=== PATIENT | male | born 1950 | race Caucasian/White ===

== ENCOUNTER 2017-01-21 14:29 | Emergency (ER) | payer OTHER ==
--- NOTE | 2017-01-21 16:16 | ER Document Report ---
HPI - HPI Pain Level: 3 Notes: Patient is a 66-year-old male who presents the ED complaining of left buttock pain 4 days status post moving a lot of furniture. Patient states that the pain is like a dull soreness in that area that will occasionally radiate around to his anterior thigh and into his groin. Patient states that pain worsens with sitting and pressure. Patient states that he is able to ambulate without difficulties. He has tried some lidocaine cream with minimal relief. Patient denies any drug allergies. Patient admits to smoking but denies any other illicit drug use. His PCM is Dr. Le. Denies any headache, fever, chest pain, palpitations, syncope, cough, shortness of breath, wheeze, dyspnea, abdominal pain, nausea/vomiting/diarrhea, urinary retention, dysuria, hematuria , loss of control of bowel or bladder, numbness/tingling, saddle anesthesia, muscle paralysis/weakness, or rash. denies any procedures or injections to his back. No h/o DM. - ROS Notes: REVIEW OF SYSTEMS: CONSTITUTIONAL : Denies fever, chills, or sweats. Denies recent illness. EENT: Denies eye, ear, throat, or mouth pain or symptoms. Denies nasal or sinus congestion or discharge. Denies throat, tongue, or mouth swelling or difficulty swallowing. CARDIOVASCULAR: Denies chest pain. Denies palpitations or racing or irregular heart beat. Denies ankle edema. RESPIRATORY: Denies cough, cold, or chest congestion. Denies shortness of breath, difficulty breathing, or wheezing. GASTROINTESTINAL: Denies abdominal pain or distention. Denies nausea, vomiting , or diarrhea. Denies blood in vomitus, stools, or per rectum. Denies black, tarry stools. Denies constipation. GENITOURINARY: Denies difficulty urinating, painful urination, burning, frequency, blood in urine, or discharge. MUSCULOSKELETAL: see hpi SKIN: Denies rash, lesions or sores. NEUROLOGICAL: Denies confusion or altered mental status. Denies passing out or loss of consciousness. Denies dizziness or lightheadedness. Denies headache. Denies weakness or paralysis or loss of use of either side. Denies problems with gait or speech. Denies sensory loss, numbness, or tingling. ALL OTHER SYSTEMS REVIEWED AND NEGATIVE. Dictation was performed using [employer] voice recognition software - CARDIOVASCULAR Cardiovascular: DENIES: Chest pain - DERM Skin Color: Normal Past Medical History - Social History Smoking Status: Current Every Day Smoker Family History: Reviewed & Not Pertinent Patient has suicidal ideation: No Patient has homicidal ideation: No - Past Medical History Cardiac Medical History: Reports: Hx Coronary Artery Disease, Hx Heart Attack, Hx Hypercholesterolemia, Hx Hypertension Pulmonary Medical History: Reports: Hx COPD Endocrine Medical History: Reports: Hx Diabetes Mellitus Type 2 Renal/ Medical History: Denies: Hx Peritoneal Dialysis GI Medical History: Reports: Hx Gastroesophageal Reflux Disease Psychiatric Medical History: Denies: Hx Depression Past Surgical History: Reports: Hx Appendectomy, Hx Cardiac Catheterization - PTCA, Hx Cholecystectomy, Hx Coronary Stent - AAA and iliac repair, Hx Orthopedic Surgery - spinal surgery to remove bone spurs Vertical Provider Document - CONSTITUTIONAL Agree With Documented VS: Yes Notes: PHYSICAL EXAMINATION: GENERAL: Well-appearing, well-nourished and in no acute distress. LUNGS: Breath sounds clear to auscultation bilaterally and equal. No wheezes rales or rhonchi. HEART: Regular rate and rhythm without murmurs, rubs, gallops. ABDOMEN: Soft, nontender, nondistended abdomen. No guarding, no rebound. No masses appreciated. Normal bowel sounds present. No CVA tenderness bilaterally. No pulsatile mass. Musculoskeletal: LE's b/l: FROM to passive/active. Strength 5+/5. SLR neg b/l. Back: FROM to passive/active. Strength 5+/5. No vertebral point tenderness or obvious deformity noted. + left SI jt tenderness. No ecchymosis or signs of trauma otherwise. Extremities: No cyanosis, clubbing, or edema b/l. Peripheral pulses 2+. Capillary refill less than 3 seconds. NEUROLOGICAL: Normal speech, normal gait. Normal sensory, motor exams PSYCH: Normal mood, normal affect. SKIN: Warm, Dry, normal turgor, no rashes or lesions noted. - INFECTION CONTROL TRAVEL OUTSIDE OF THE [place] IN LAST 30 DAYS: No - RESPIRATORY O2 Sat by Pulse Oximetry: 98 Course - Re-evaluation Re-evalutation: 01/21/17 16:16 Patient is an afebrile, well-hydrated, 66-year-old male who presents the ED with left sacral iliitis. Vitals are stable. PE otherwise unremarkable for any focal neurological deficits. Low suspicion for any meningitis, fracture, expanding/ruptured AAA, cauda equina syndrome, epidural mass lesion/abscess, herniated disc causing severe spinal stenosis, or other systemic infection at this time. Patient is aware that his condition can change from initial presentation and that he needs monitor symptoms closely for any acute changes. Toradol 15 mg given IM today. I will send him home with a prescription for Voltaren gel. Conservative measures otherwise for symptoms as reviewed in discharge. Recheck with your PCM in 3-5 days. Return to the ED with any worsening/concerning symptoms otherwise as reviewed discharge. Patient is in agreement. - Vital Signs Vital signs: Temp Pulse Resp BP Pulse Ox 98.4 F 63 18 146/93 H 98 01/21/17 15:11 01/21/17 15:11 01/21/17 15:11 01/21/17 15:11 01/21/17 15:11 Discharge - Discharge Clinical Impression: Sacroiliac inflammation Condition: Stable Disposition: HOME, SELF-CARE Instructions: Ice Massage ([facility]), Ice Packs ([facility]), Warm Packs ([facility]) Additional Instructions: Rest, Ice Tylenol/ibuprofen as needed Light stretches daily Strength exercises as able Moist heat and massage may help F/u with your PCP in 2-3 days for a recheck Consider consult(s) with Orthopedics/physical therapy for ongoing/worsening symptoms Return to the ED with any worsening symptoms and/or development of fever, headache, chest pain, palpitations, syncope, shortness of breath, trouble breathing, abdominal pain, n/v/d, blood in stool/urine, loss of control of bowel /bladder, urinary retention, muscle weakness/paralysis, saddle anesthesia, numbness/tingling, or other worsening symptoms that are concerning to you. Prescriptions: Diclofenac Sodium [Voltaren] 4 gm TP QID PRN #100 gel..gm. PRN Reason: Forms: Elevated Blood Pressure, Smoking Cessation Education Referrals: KAYE LE MD [ACTIVE STAFF] - Follow up in 3-5 days
[2017-01-21] MEDS ORDERED: KETOROLAC TROMETHAMINE INJ/PF 30 MG/1 ML SDV IM ONE (16:17)
[2017-01-21 16:37] VITALS: BP 144/86
== END 2017-01-21 16:32 | disposition home or self-care (01) ==
LOC: ER 14:29
DX: M46.1 Sacroiliitis, not elsewhere classified (principal); F17.200 Nicotine dependence, unspecified, uncomplicated; I25.10 Atherosclerotic heart disease of native coronary artery without angina pectoris; I25.2 Old myocardial infarction; I10 Essential (primary) hypertension; E11.9 Type 2 diabetes mellitus without complications; J44.9 Chronic obstructive pulmonary disease, unspecified
CPT/HCPCS: 99283; 96372; J1885

== ENCOUNTER 2017-06-13 23:04 | Emergency (ER) | payer OTHER ==
[2017-06-13 23:19] VITALS: BP 194/107
--- NOTE | 2017-06-13 23:42 | RADIOLOGY REPORT (SQ) ---
EXAM DESCRIPTION: ELBOW LEFT OVER 2 VIEWS CLINICAL HISTORY: 67 years, Male, s/p fall on ice- pain COMPARISON: None. NUMBER OF VIEWS: Four LIMITATIONS: None. FINDINGS: Bones, joints, and soft tissues appear intact. No effusion. IMPRESSION: No acute findings. 2011 [employer]- All Rights Reserved
--- NOTE | 2017-06-13 23:46 | RADIOLOGY REPORT (SQ) ---
EXAM DESCRIPTION: SHOULDER LEFT 2 OR MORE VIEWS CLINICAL HISTORY: 67 years, Male, s/p fall on ice- pain COMPARISON: None. NUMBER OF VIEWS: Three FINDINGS: 0.9 cm medially displaced comminuted fracture of the surgical neck of the left proximal humerus, moderate impaction deformity of the left humeral head medially on internal rotated view, and mild acromioclavicular osteoarthritis. No evidence of healing. No joint dislocation. IMPRESSION: Fractures of the proximal left humerus. 2011 [employer]- All Rights Reserved
--- NOTE | 2017-06-14 00:02 | ER Document Report ---
ED Extremity Problem, Upper - General Chief Complaint: L shoulder pain s/p fall Stated Complaint: LEFT SHOULDER INJURY Time Seen by Provider: 06/14/17 00:01 Mode of Arrival: Ambulatory Information source: Patient Notes: 67-year-old smoker male slipped in the snow and ice at 10:30 PM tonight. He fell on his left shoulder Causing popping and cracking in extreme pain. He has a history of hypertension, BPH, hyperlipidemia, coronary artery disease disease, stents. He takes Plavix and he took 2 aspirin tonight for the pain. TRAVEL OUTSIDE OF THE [place] IN LAST 30 DAYS: No - Related Data Allergies/Adverse Reactions: ragweed Allergy (Intermediate, Uncoded 01/21/17 15:08) Stuffy Nose Past Medical History - General Information source: Patient - Social History Smoking Status: Current Every Day Smoker Frequency of alcohol use: None Drug Abuse: None Lives with: Spouse/Significant other Family History: Reviewed & Not Pertinent - Past Medical History Cardiac Medical History: Reports: Hx Coronary Artery Disease, Hx Heart Attack, Hx Hypercholesterolemia, Hx Hypertension Pulmonary Medical History: Reports: Hx COPD Endocrine Medical History: Reports: Hx Diabetes Mellitus Type 2 Renal/ Medical History: Denies: Hx Peritoneal Dialysis GI Medical History: Reports: Hx Gastroesophageal Reflux Disease Psychiatric Medical History: Denies: Hx Depression Past Surgical History: Reports: Hx Appendectomy, Hx Cardiac Catheterization - PTCA, Hx Cholecystectomy, Hx Coronary Stent - AAA and iliac repair, Hx Orthopedic Surgery - spinal surgery to remove bone spurs Review of Systems - Review of Systems Constitutional: No symptoms reported EENT: No symptoms reported Cardiovascular: No symptoms reported Respiratory: No symptoms reported Gastrointestinal: No symptoms reported Genitourinary: No symptoms reported Male Genitourinary: No symptoms reported Musculoskeletal: See HPI Skin: No symptoms reported Hematologic/Lymphatic: No symptoms reported Neurological/Psychological: No symptoms reported Physical Exam - Vital signs Vitals: Temp Pulse Resp BP Pulse Ox 97.5 F 76 24 H 194/107 H 98 06/13/17 23:14 06/13/17 23:14 06/13/17 23:14 06/13/17 23:14 06/13/17 23:14 Interpretation: Normal - General General appearance: Appears well, Alert - HEENT Head: Normocephalic, Atraumatic Eyes: Normal Pupils: PERRL Neck: Supple. No: Lymphadenopathy - Respiratory Respiratory status: No respiratory distress Chest status: Nontender Breath sounds: Normal Chest palpation: Normal - Cardiovascular Rhythm: Regular Heart sounds: Normal auscultation Murmur: No - Back Back: Normal, Nontender - Extremities General upper extremity: Normal inspection, Nontender, Normal color, Normal ROM , Normal temperature General lower extremity: Normal inspection, Nontender, Normal color, Normal ROM , Normal temperature, Normal weight bearing. No: Bayron's sign Shoulder: Tender - swelling, proximal humerus, limits his abduction due to pain , FROM left elbow, Limited ROM. No: Deformity, Instability Elbow: Normal Notes: 2+ radial pulse, N/V intact distal to the fx. - Neurological Neuro grossly intact: Yes Cognition: Normal Orientation: AAOx4 Rom[place] Coma Scale Eye Opening: Spontaneous Rom[place] Coma Scale Verbal: Oriented Rom[place] Coma Scale Motor: Obeys Commands [place] Coma Scale Total: 15 Speech: Normal Motor strength normal: LUE, RUE, LLE, RLE Sensory: Normal - Psychological Associated symptoms: Normal affect, Normal mood - Skin Skin Temperature: Warm Skin Moisture: Dry Skin Color: Normal Skin irregularity: negative: Rash Course - Re-evaluation Re-evalutation: 06/14/17 00:20 Comminuted fracture proximal left humerus, negative left elbow x-ray. - Vital Signs Vital signs: Temp Pulse Resp BP Pulse Ox 97.5 F 76 24 H 194/107 H 98 06/13/17 23:14 06/13/17 23:14 06/13/17 23:14 06/13/17 23:14 06/13/17 23:14 Procedures - Immobilization Left Arm Time completed: 00:21 Pre-Proc Neuro Vasc Exam: Normal Immobilizer type: Sling Performed by: PCT Post-Proc Neuro Vasc Exam: Normal Alignment checked and good: Yes Discharge - Discharge Clinical Impression: Comminuted fracture prox left humerus Condition: Good Disposition: HOME, SELF-CARE Instructions: Oral Narcotic Medication ([facility]), Sling as Treatment ([facility]) Additional Instructions: Call for orthopedic appointment tomorrow, get appt early this week Sling Pain medication Turned to the emergency room any concerns Prescriptions: Hydrocodone Bit/Acetaminophen [Hydrocodon-Acetaminophen 5-325] 1 each PO Q4HP PRN #20 tablet PRN Reason: Referrals: AUGIE OCASIO MD [ACTIVE STAFF] - Follow up tomorrow
[2017-06-14] MEDS ORDERED: ONDANSETRON 4 MG TAB.RAPDIS PO ONE (00:03)
[2017-06-14] MEDS ORDERED: OXYCODONE-ACETAMINOPHEN 5-325 MG TABLET PO ONE (00:03)
[2017-06-14] MEDS ORDERED: HYDROCODONE/ACETAMINOPHEN 5-325 MG (6 TAB/ER DISP) PO PRN (00:06)
== END 2017-06-14 00:30 | disposition home or self-care (01) ==
LOC: ER 23:04
DX: S42.202A Unspecified fracture of upper end of left humerus, initial encounter for closed fracture (principal); W00.0XXA Fall on same level due to ice and snow, initial encounter; F17.200 Nicotine dependence, unspecified, uncomplicated; Z79.899 Other long term (current) drug therapy
CPT/HCPCS: 99283; 73080; 73030; A9270 ×3; S0119

== ENCOUNTER 2018-01-15 14:44 | Emergency (ER) | payer OTHER ==
[2018-01-15] MEDS ORDERED: NOREPINEPHRINE BITARTRATE INJ/PF 4 MG/4 ML SDV IV ONE ×2 (15:17→15:19)
--- NOTE | 2018-01-15 15:17 | ER Document Report ---
ED General - General Chief Complaint: Cardiac Arrest Stated Complaint: UNRESPONSIVE Time Seen by Provider: 01/15/18 15:04 Notes: Patient is approximately 9 days post multiple vessel CABG done at [facility] in [place]. He has been at a local rehab facility during his recovery. Today , he expressed to the staff that he was not feeling very good, but nothing specifically stated. He was alone for about 5 minutes when he was discovered laying on the floor face down. Supposedly staff started CPR and called the EMS. EMS says that when they arrived patient was in asystole. CPR was continued and they found ventricular fibrillation and patient was defibrillated one time and came back into a sinus rhythm. During the resuscitation, patient was intubated. Transported to our emergency department. Initial vital signs were blood pressure 76/67 with a heart rate of 85 and an O2 sat of 97% being ventilated, and respirations of 17. Patient had a CT scan of his head that did not show anything acute, including no evidence of stroke. Chest x-ray was normal as well. TRAVEL OUTSIDE OF THE [place] IN LAST 30 DAYS: No - Related Data Allergies/Adverse Reactions: ragweed Allergy (Intermediate, Uncoded 01/21/17 15:08) Stuffy Nose Past Medical History - Social History Smoking Status: Unknown if Ever Smoked Family History: Reviewed & Not Pertinent - Past Medical History Cardiac Medical History: Reports: Hx Coronary Artery Disease, Hx Heart Attack, Hx Hypercholesterolemia, Hx Hypertension Pulmonary Medical History: Reports: Hx COPD Endocrine Medical History: Reports: Hx Diabetes Mellitus Type 2 GI Medical History: Reports: Hx Gastroesophageal Reflux Disease Past Surgical History: Reports: Hx Appendectomy, Hx Cardiac Catheterization - PTCA, Hx Cardiac Surgery, Hx Cholecystectomy, Hx Coronary Stent - AAA and iliac repair, Hx Orthopedic Surgery - spinal surgery to remove bone spurs Review of Systems - Review of Systems -: Yes ROS unobtainable due to patient's medical condition Physical Exam - Vital signs Vitals: Pulse Ox 89 L 01/15/18 14:44 Interpretation: Hypotensive - Notes Notes: PHYSICAL EXAMINATION: GENERAL: Intubated and being ventilated manually. Unresponsive to any stimulus. HEAD: Atraumatic, normocephalic. EYES: Pupils pinpoint bilaterally, unable to assess response to light. ENT: Intubated NECK: Normal range of motion, supple. LUNGS: Breath sounds somewhat shallow, but clear and equal bilaterally. HEART: Decreased heart sounds. Regular rate and rhythm without murmurs. ABDOMEN: Soft, nontender. No response to palpation. BACK: No tenderness throughout entire back. EXTREMITIES: Normal range of motion without pain. NEUROLOGICAL: Patient is basically comatose and unresponsive to any stimulation. Only activity is resisting the ventilator. SKIN: Warm, dry, no rashes. ET tube was eventually moved back about a total of 3-1/2 or 4 cm from the initial chest x-ray as it was 2 4 down and pointing into the right mainstem bronchus. Course - Re-evaluation Re-evalutation: Patient's hypotension continued and he was given 1 L of saline bolus followed by a second liter. At the start of the second liter, I initiated a Levophed drip at 12 mics. Fairly soon after, blood pressures began to increase to systolic of 80 and 90 and then a and eventually 130 and even 150s systolic. At that time, patient's Levophed was cut in half down to 6 mcg/min. He maintained his blood pressure in the 130s and his drip was decreased eventually to 4 mcg/ min. Patient showed no neurologic improvement during these activities and resuscitation. Patient had a CT scan of his head that did not show anything acute, including no evidence of stroke. Chest x-ray was normal as well. 01/15/18 17:29 Blood pressure now up to 130 systolic. 01/15/18 19:18 Spoke with several physicians at [facility] and eventually Dr. Myke Ramsay, who accepted the patient for transfer. - Vital Signs Vital signs: Temp Pulse Resp BP Pulse Ox 18 117/86 H 97 01/15/18 19:10 01/15/18 19:10 01/15/18 19:10 - Laboratory Result Diagrams: 01/15/18 14:45 01/15/18 14:45 Laboratory results interpreted by me: 01/15/18 01/15/18 01/15/18 14:45 14:45 14:45 WBC 15.7 H RBC 3.90 L Hgb 10.9 L Hct 33.7 L RDW 17.3 H Plt Count 505 H Abs Neuts (Manual) 11.8 H PT 16.9 H Sodium 134.6 L Chloride 97 L BUN 23 H Glucose 201 H Calcium 8.3 L Direct Bilirubin 0.6 H AST 109 H ALT 108 H Alkaline Phosphatase 193 H Total Protein 5.8 L Albumin 3.0 L Critical Care Note - Critical Care Note Total time excluding time spent on procedures (mins): 60 Discharge - Discharge Clinical Impression: Cardiac arrest, Hx of CABG Condition: Critical Disposition: Critical access hospital
[2018-01-15] MEDS ORDERED: FENTANYL CITRATE INJ/PF 100 MCG/2 ML AMPUL IV ONE ×2 (15:22→18:06)
[2018-01-15] MEDS ORDERED: FENTANYL CITRATE INJ/PF 100 MCG/2 ML AMPUL ONE (15:24)
[2018-01-15] MEDS ORDERED: NORMAL SALINE 1000 ML 1,000 ML IV ONE ×2 (15:37)
--- NOTE | 2018-01-15 15:41 | RADIOLOGY REPORT (SQ) ---
EXAM DESCRIPTION: CHEST SINGLE VIEW COMPLETED DATE/TIME: 01/15/2018 3:27 pm REASON FOR STUDY: UNRESPONSIVE, ETT, NG TUBE PLACEMENT COMPARISON: 04/26/2015 EXAM PARAMETERS: NUMBER OF VIEWS: Two views. TECHNIQUE: Single frontal radiographic view of the chest acquired. RADIATION DOSE: NA LIMITATIONS: None. FINDINGS: LUNGS AND PLEURA: Patchy hazy opacifications are present bilaterally. Right greater than left pleural effusions are demonstrated on the 2nd frontal radiograph. MEDIASTINUM AND HILAR STRUCTURES: No masses. Contour normal. HEART AND VASCULAR STRUCTURES: Heart normal in size. Normal vasculature. BONES: No acute findings. HARDWARE: The initial radiograph demonstrates a right mainstem intubation ; the 2nd radiograph demons trates retraction with the tube terminating 3 cm cranial to the chris. Midline surgical changes are present. OTHER: No other significant finding. IMPRESSION: 1. Status post intubation with the tube terminating 3.0 cm cranial to the chris. 2. Patchy hazy opacifications with right greater than left pleural effusions. TECHNICAL DOCUMENTATION: JOB ID: [id number] [employer]- All Rights Reserved Reading location - IP/workstation name: [email or web address]
--- NOTE | 2018-01-15 15:45 | RADIOLOGY REPORT (SQ) ---
EXAM DESCRIPTION: KUB/ABDOMEN (SINGLE VIEW) COMPLETED DATE/TIME: 01/15/2018 3:27 pm REASON FOR STUDY: UNRESPONSIVE, ETT, NG TUBE PLACEMENT COMPARISON: 04/26/2015 and 01/16/2016 NUMBER OF VIEWS: One view. TECHNIQUE: Supine radiographic image of the abdomen acquired. LIMITATIONS: Limited field of view. FINDINGS: BOWEL GAS PATTERN: Limited evaluation; no evidence high-grade obstruction. CALCIFICATIONS: No suspicious calcifications. SOFT TISSUES: No gross mass or suggestion of organomegaly. HARDWARE: An apparent enteric tube terminates subdiaphragmatically with the proximal port projecting cranial to the esophagogastric junction. Partially imaged vascular stent. Right upper quadrant surg ical clips. BONES: No acute fracture. No worrisome bone lesions. OTHER: No other significant finding. IMPRESSION: Enteric tube with the proximal port projecting cranial to the esophagogastric junction. Recommend advancing 10 cm. TECHNICAL DOCUMENTATION: JOB ID: [id number] [employer]- All Rights Reserved Reading location - IP/workstation name: [email or web address]
[2018-01-15 15:49] LABS: INTERNATIONAL RATION (INR) 1.31; PROTHROMBIN TIME 16.9 SEC (11.4-15.4)
[2018-01-15 15:53] LABS: HEMATOCRIT 33.7 % (37.9-51.0); HEMOGLOBIN 10.9 g/dL (13.5-17.0); MEAN CORPUSCULAR HEMOGLOBIN 28.1 pg (27.0-33.4); MEAN CORPUSCULAR HGB CONC 32.4 g/dL (32.0-36.0); MEAN CORPUSCULAR VOLUME 87 fl (80-97); PLATELET COUNT 505 10^3/uL (150-450); RED CELL DISTRIBUTION WIDTH 17.3 % (11.5-14.0); WHITE BLOOD COUNT 15.7 10^3/uL (4.0-10.5)
[2018-01-15 15:57] LABS: ALANINE AMINOTRANSFERASE 108 U/L (21-72); ALKALINE PHOSPHATASE 193 U/L (38-126); ANION GAP 15 (5-19); ASPARTATE AMINO TRANSFERASE 109 U/L (17-59); BILIRUBIN,DIRECT 0.6 mg/dL (0.0-0.4); BILIRUBIN,TOTAL 1.1 mg/dL (0.2-1.3); BLOOD UREA NITROGEN 23 mg/dL (7-20); CALCIUM 8.3 mg/dL (8.4-10.2); CARBON DIOXIDE 23 mmol/L (22-30); CHLORIDE 97 mmol/L (98-107); CREATINE KINASE 106 U/L (55-170); GLUCOSE 201 mg/dL (75-110); POTASSIUM 3.9 mmol/L (3.6-5.0); SODIUM 134.6 mmol/L (137-145); TOTAL PROTEIN 5.8 g/dL (6.3-8.2)
[2018-01-15 16:08] LABS: CREATINE KINASE MB 4.05 ng/mL (<4.55)
[2018-01-15 16:13] LABS: TROPONIN I 0.811 ng/mL
[2018-01-15 16:27] LABS: ABSOLUTE LYMPHOCYTES# (MANUAL) 3.5 10^3/uL (0.5-4.7); ABSOLUTE MONOCYTES # (MANUAL) 0.5 10^3/uL (0.1-1.4); ABSOLUTE NEUTROPHILS# (MANUAL) 11.8 10^3/uL (1.7-8.2); BASOPHILS % (MANUAL) 0 % (0-2); EOSINOPHILS % (MANUAL) 0 % (0-6); LYMPHOCYTES % (MANUAL) 22 % (13-45); MONOCYTES % (MANUAL) 3 % (3-13); SEGMENTED NEUTROPHILS % (MAN) 75 % (42-78); TOTAL CELLS COUNTED 100
[2018-01-15 16:28] LABS: ANISOCYTOSIS 1+; OVALOCYTES 1+; PLATELET COMMENT INCREASED; POIKILOCYTOSIS 1+
--- NOTE | 2018-01-15 16:49 | RADIOLOGY REPORT (SQ) ---
EXAM DESCRIPTION: CT HEAD WITHOUT COMPLETED DATE/TIME: 01/15/2018 4:33 pm REASON FOR STUDY: Post arrest and fall COMPARISON: None. TECHNIQUE: Axial images acquired through the brain without intravenous contrast. Images reviewed wi th bone, brain and subdural windows. Images stored on PACS. All CT scanners at this facility use dose modulation, iterative reconstruction, and/or weight based d osing when appropriate to reduce radiation dose to as low as reasonably achievable (ALARA). [facility]: Dose Right [facility]: CareDose [facility]: Dose Right [facility]: Teradose 4D [facility]: [employer] RADIATION DOSE: CT Rad equipment meets quality standard of care and radiation dose reduction techniq ues were employed. CTDIvol: 53.2 mGy. DLP: 1070 mGy-cm.mGy. LIMITATIONS: Motion artifact. FINDINGS: VENTRICLES: Mildly prominent. CEREBRUM: No mass effect. No hemorrhage. No midline shift. Areas of low density in the white matte r most likely due to chronic micro-vascular ischemic change. 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 No evidence for acute territorial infarction. CEREBELLUM: No hemorrhage. No alteration of density. No evidence for acute infarction. EXTRAAXIAL SPACES: Age-related involutional change. No fluid collections. ORBITS AND GLOBE: Symmetrical contour of the globes. CALVARIUM: No depressed fracture. PARANASAL SINUSES: No air-fluid level. SOFT TISSUES: No hematoma. OTHER: On the stadium manager image, the orogastric tube is coiled at the nasopharynx. IMPRESSION: 1. No acute intracranial hemorrhage or acute territorial infarct. 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 Chronic changes of microvascular ischemi a. If there is persistent clinical concern for acute ischemia, MRI can be obtained for further evalu ation. 2. Orogastric tube coiled at the nasopharynx. Repositioning recommended. EVIDENCE OF ACUTE STROKE: NO. TECHNICAL DOCUMENTATION: JOB ID: [id number] [facility] Quality ID # [id number]: Final reports with documentation of one or more dose reduction techniques (e.g., Au tomated exposure control, adjustment of the mA and/or kV according to patient size, use of iterative reconstruction technique) 2010 [employer]- All Rights Reserved Reading location - IP/workstation name: [email or web address]
[2018-01-15 19:17] VITALS: BP 117/86
--- NOTE | 2018-01-15 21:09 | EKG REPORT ---
SEVERITY:- ABNORMAL ECG - SINUS RHYTHM PROBABLE LEFT ATRIAL ABNORMALITY INCOMPLETE RIGHT BUNDLE BRANCH BLOCK INFERIOR INFARCT, ACUTE : Confirmed by: Keerthi Espitia MD 15-Jan-2018 21:09:31
== END 2018-01-15 19:30 | disposition short-term general hospital (02) ==
LOC: ER 14:44
DX: I46.9 Cardiac arrest, cause unspecified (principal); Z95.1 Presence of aortocoronary bypass graft; I95.9 Hypotension, unspecified; I25.10 Atherosclerotic heart disease of native coronary artery without angina pectoris; I10 Essential (primary) hypertension; I25.2 Old myocardial infarction; E11.9 Type 2 diabetes mellitus without complications; J44.9 Chronic obstructive pulmonary disease, unspecified; Z91.048 Other nonmedicinal substance allergy status; Z95.5 Presence of coronary angioplasty implant and graft
CPT/HCPCS: 93005; 96376; 99291; 96361; 51702; 96374; 96375; 36415; 82553; 82550; 85025; 85610; 80053; 84484; 71045; 74018; 70450; 94660; 93010; J3010; J3490; J7030

== ENCOUNTER 2018-04-16 16:07 | Emergency (ER) | payer OTHER ==
[2018-04-16 16:12] VITALS: BP 144/92
--- NOTE | 2018-04-16 16:40 | ER Document Report ---
ED Medical Screen (RME) - General Chief Complaint: Numbness of Face Stated Complaint: NUMBNESS Time Seen by Provider: 04/16/18 16:31 Notes: 68-year-old male patient reports getting flu shot Pneumovax on afternoon. Yesterday afternoon about 1 PM he noted the onset of a numbness tingling, pins and needle sensation to his right perioral face and right hand. The numbness in the hand includes the fifth finger and the other fingers. He did drop a plate yesterday that he was holding with his right hand. There is no particular weakness or motor deficit. He does take aspirin 325 mg daily. He does have extensive cardiovascular history. I have greeted and performed a rapid initial assessment of this patient. A comprehensive ED assessment and evaluation of the patient, analysis of test results and completion of the medical decision making process will be conducted by additional ED providers. TRAVEL OUTSIDE OF THE [place] IN LAST 30 DAYS: No - Related Data Allergies/Adverse Reactions: ragweed Allergy (Intermediate, Uncoded 04/16/18 16:13) Stuffy Nose Past Medical History - Social History Frequency of alcohol use: None Drug Abuse: None - Past Medical History Cardiac Medical History: Reports: Hx Congestive Heart Failure, Hx Coronary Artery Disease, Hx Heart Attack, Hx Hypercholesterolemia, Hx Hypertension Pulmonary Medical History: Reports: Hx COPD Endocrine Medical History: Reports: Hx Diabetes Mellitus Type 2 Renal/ Medical History: Denies: Hx Peritoneal Dialysis GI Medical History: Reports: Hx Gastroesophageal Reflux Disease Psychiatric Medical History: Denies: Hx Depression Past Surgical History: Reports: Hx Appendectomy, Hx Cardiac Catheterization - PTCA, Hx Cardiac Surgery, Hx Cholecystectomy, Hx Coronary Stent - AAA and iliac repair, Hx Orthopedic Surgery - spinal surgery to remove bone spurs, Hx Tonsillectomy Physical Exam - Vital signs Vitals: Temp Pulse Resp BP Pulse Ox 98.0 F 57 L 16 144/92 H 98 04/16/18 16:11 04/16/18 16:11 04/16/18 16:11 04/16/18 16:11 04/16/18 16:11 Course - Vital Signs Vital signs: Temp Pulse Resp BP Pulse Ox 98.0 F 57 L 16 144/92 H 98 04/16/18 16:11 04/16/18 16:11 04/16/18 16:11 04/16/18 16:11 04/16/18 16:11 Doctor's Discharge - Discharge Referrals: WANDER SARKAR, DO [Primary Care Provider] - Follow up as needed
--- NOTE | 2018-04-16 16:51 | ER Document Report ---
ED General - General Chief Complaint: Numbness of Face Stated Complaint: NUMBNESS Time Seen by Provider: 04/16/18 16:31 Notes: Patient is a 68-year-old male with history of heart failure and CAD that presents to the emergency department for chief complaint of tingling in his face and hand. Patient states that the symptoms started yesterday, where he has tingling in his fourth and fifth digits of his right hand, and just lateral to the nasolabial fold on the right side of the face as well. He denies loss of sensation, states he just feels a tingling pins and needles sensation. Denies having any pain. Denies any having any headache, lightheadedness, dizziness, chest pain, shortness of breath, nausea, vomiting. He reports he is currently wearing a LifeVest for acute heart failure after his last heart attack. Denies any other complaints at this time. Past Medical History: CHF, CAD, hypertension, hyperlipidemia Past Surgical History: CABG Social History: Admits to smoking cigarettes, denies alcohol or illicit drug use. Family History: Reviewed and noncontributory for presenting illness Allergies: Reviewed, see documented allergy list. REVIEW OF SYSTEMS: Other than noted above, the 12 point review of systems was reviewed with the patient and were negative, all pertinent findings are included in the HPI. PHYSICAL EXAMINATION: Vital signs reviewed, nursing noted reviewed. GENERAL: Well-appearing, well-nourished and in no acute distress. HEAD: Atraumatic, normocephalic. EYES: Eyes appear normal, extraocular movements intact, sclera anicteric, conjunctiva are normal. ENT: nares patent, oropharynx clear without exudates. Moist mucous membranes. NECK: Normal range of motion, supple without lymphadenopathy LUNGS: Breath sounds clear to auscultation bilaterally and equal. No wheezes rales or rhonchi. HEART: Regular rate and rhythm without murmurs ABDOMEN: Soft, nontender, normoactive bowel sounds. No rebound, guarding, or rigidity. No masses appreciated. EXTREMITIES: Nontender, good range of motion, no pitting or edema. NEUROLOGICAL: With palpation the patient has pins and needles sensation to the right face just lateral to the nasolabial fold, and the right fourth and fifth digits. There is no loss of sensation or decreased sensation with palpation. No focal neurological deficits otherwise. Moves all extremities spontaneously Motor and sensory grossly intact on exam. PSYCH: Normal mood, normal affect. SKIN: Warm, Dry, normal turgor, no rashes or lesions noted on exposed skin TRAVEL OUTSIDE OF THE [place] IN LAST 30 DAYS: No - Related Data Allergies/Adverse Reactions: ragweed Allergy (Intermediate, Uncoded 04/16/18 16:13) Stuffy Nose Past Medical History - Social History Smoking Status: Current Every Day Smoker Frequency of alcohol use: None Drug Abuse: None Family History: Reviewed & Not Pertinent Patient has suicidal ideation: No Patient has homicidal ideation: No - Past Medical History Cardiac Medical History: Reports: Hx Congestive Heart Failure, Hx Coronary Artery Disease, Hx Heart Attack, Hx Hypercholesterolemia, Hx Hypertension Pulmonary Medical History: Reports: Hx COPD Endocrine Medical History: Reports: Hx Diabetes Mellitus Type 2 Renal/ Medical History: Denies: Hx Peritoneal Dialysis GI Medical History: Reports: Hx Gastroesophageal Reflux Disease Psychiatric Medical History: Denies: Hx Depression Past Surgical History: Reports: Hx Appendectomy, Hx Cardiac Catheterization - PTCA, Hx Cardiac Surgery, Hx Cholecystectomy, Hx Coronary Stent - AAA and iliac repair, Hx Orthopedic Surgery - spinal surgery to remove bone spurs, Hx Tonsillectomy Physical Exam - Vital signs Vitals: Temp Pulse Resp BP Pulse Ox 98.0 F 57 L 16 144/92 H 98 04/16/18 16:11 04/16/18 16:11 04/16/18 16:11 04/16/18 16:11 04/16/18 16:11 Course - Re-evaluation Re-evalutation: Patient seen and examined vital signs reviewed. Laboratory data and imaging were ordered as appropriate for the patient's presenting symptoms and complaint, with consideration of any critical or life threatening conditions that may be associated with their obtained history and exam as noted above. Results were reviewed when available and demonstrated negative CT imaging of the brain, blood work was essentially unremarkable, his troponin was 0.028, which is a patient with heart failure, most likely his baseline, he has had a STEMI, and currently wears a LifeVest, he is not complaining of any chest pain. The patient was re-evaluated and was stable, unchanged Evaluation was most consistent with facial paresthesia, hand paresthesias. Symptoms have been ongoing for over 24 hours, I do not feel that these are stroke symptoms, given that the patient has more paresthesia, and numbness and tingling as opposed to loss of sensation on exam, and the symptoms in his hands seem to be peripheral, and not the entire right upper extremity, there only in his hand and in the fourth and fifth digits. Although the patient has risk factors for CVA, I discussed with him results of testing, and did offer admission, for observation, which he declined. I advised him to follow-up with his primary care physician, and if he has any return of symptoms or worsening, that he should immediately return to the emergency department which the patient was agreeable to. He is currently taking a full dose aspirin daily. I advised him to continue doing this. Results were discussed with the patient at this point, after careful consideration I feel that that patient can be discharged from the emergency department, the patient was educated treatments and reasons to return to the emergency department based on their presumed diagnosis as noted above, they were advised to followup with a primary care physician in 2-3 days. Patient was agreeable to plan of care. *Note is created using voice recognition software and may contain spelling, syntax or grammatical errors. Laboratory 04/16/18 04/16/18 04/16/18 18:07 18:07 18:07 WBC 8.7 RBC 4.38 Hgb 12.5 L Hct 37.9 MCV 87 MCH 28.5 MCHC 32.8 RDW 16.5 H Plt Count 258 Seg Neutrophils % 52.2 Lymphocytes % 30.1 Monocytes % 12.8 Eosinophils % 4.4 Basophils % 0.5 Absolute Neutrophils 4.5 Absolute Lymphocytes 2.6 Absolute Monocytes 1.1 Absolute Eosinophils 0.4 Absolute Basophils 0.0 Sodium 142.7 Potassium 4.8 Chloride 104 Carbon Dioxide 26 Anion Gap 13 BUN 17 Creatinine 0.93 Est GFR ( Amer) > 60 Est GFR (Non-Af Amer) > 60 Glucose 83 Calcium 9.6 Total Bilirubin 0.9 Direct Bilirubin 0.4 Neonat Total Bilirubin Not Reportable Neonat Direct Bilirubin Not Reportable Neonat Indirect Bili Not Reportable AST 11 L ALT 20 L Alkaline Phosphatase 89 Creatine Kinase 55 CK-MB (CK-2) 3.55 Troponin I 0.028 Total Protein 6.[address] 04/16/18 16:38 IMPRESSION: 1. No acute intracranial findings. 2. Unchanged chronic microvascular ischemic disease. 3. Unchanged small area of encephalomalacia the right occipital lobe, sequelae of prior infarcts. EVIDENCE OF ACUTE STROKE: NO. - Vital Signs Vital signs: Temp Pulse Resp BP Pulse Ox 98.0 F 57 L 15 144/92 H 100 04/16/18 16:11 04/16/18 16:11 04/16/18 17:20 04/16/18 16:11 04/16/18 17:20 - Laboratory Result Diagrams: 04/16/18 18:07 04/16/18 18:07 Laboratory results interpreted by me: 04/16/18 04/16/18 18:07 18:07 Hgb 12.5 L RDW 16.5 H AST 11 L ALT 20 L - EKG Interpretation by Me Additional EKG results interpreted by me: EKG demonstrates sinus bradycardia with a ventricular rate of 54 bpm, normal axis, QTC 467 ms, there is a T wave inversion in lead III and aVF, this is compared to prior EKG from 01/15/2018, where it appears the patient was having a STEMI. Discharge - Discharge Clinical Impression: Facial paresthesia, Right hand paresthesia Condition: Stable Disposition: HOME, SELF-CARE Instructions: Numbness or Paresthesia ([facility]) Additional Instructions: If you develop any symptoms such as weakness in your arm or leg on one side, or facial droop, or slurred speech, please return to the emergency department immediately. Continue taking your aspirin, and take your home blood pressure medications and follow-up with your primary care physician. Referrals: MAGGIE MARKHAM MD [Primary Care Provider] - Follow up tomorrow (call for appointment. )
--- NOTE | 2018-04-16 17:42 | EKG REPORT ---
SEVERITY:- ABNORMAL ECG - SINUS RHYTHM PROBABLE LEFT ATRIAL ABNORMALITY OLD INFERIOR INFARCT, OCCURRED ON AROUND 01/15/18. 14:45 : Confirmed by: Tyrell Coy MD 16-Apr-2018 17:42:16
--- NOTE | 2018-04-16 17:58 | RADIOLOGY REPORT (SQ) ---
EXAM DESCRIPTION: CT HEAD WITHOUT COMPLETED DATE/TIME: 04/16/2018 5:35 pm REASON FOR STUDY: Right perioral right hand paresthesias COMPARISON: 01/15/2018 TECHNIQUE: Axial images acquired through the brain without intravenous contrast. Images reviewed wi th bone, brain and subdural windows. Additional sagittal and coronal reconstructions were generated. Images stored on PACS. All CT scanners at this facility use dose modulation, iterative reconstruction, and/or weight based d osing when appropriate to reduce radiation dose to as low as reasonably achievable (ALARA). [facility]: Dose Right [facility]: CareDose [facility]: Dose Right [facility]: Teradose 4D [facility]: Smart FrameBlast RADIATION DOSE: CT Rad equipment meets quality standard of care and radiation dose reduction techniq ues were employed. CTDIvol: 53.2 mGy. DLP: 1150 mGy-cm. mGy. LIMITATIONS: None. FINDINGS: VENTRICLES: Normal size and contour. CEREBRUM: No masses. No hemorrhage. No midline shift. No evidence for acute infarction. Unchanged supratentorial hypodensities. Unchanged small area of encephalomalacia of the right occipital lobe. CEREBELLUM: No masses. No hemorrhage. No alteration of density. No evidence for acute infarction. EXTRAAXIAL SPACES: No fluid collections. No masses. ORBITS AND GLOBE: No intra- or extraconal masses. Normal contour of globe without masses. CALVARIUM: No fracture. PARANASAL SINUSES: No fluid or mucosal thickening. SOFT TISSUES: No mass or hematoma. OTHER: No other significant finding. IMPRESSION: 1. No acute intracranial findings. 2. Unchanged chronic microvascular ischemic disease. 3. Unchanged small area of encephalomalacia the right occipital lobe, sequelae of prior infarcts. EVIDENCE OF ACUTE STROKE: NO. COMMENT: Quality ID # [id number]: Final reports with documentation of one or more dose reduction techniques (e.g., Automated exposure control, adjustment of the mA and/or kV according to patient size, use of iterative reconstruction technique) TECHNICAL DOCUMENTATION: JOB ID: [id number] [employer]- All Rights Reserved Reading location - IP/workstation name: [email or web address]
[2018-04-16 18:25] LABS: ABSOLUTE EOSINOPHILS # (AUTO) 0.4 10^3/uL (0.0-0.6); ABSOLUTE LYMPHOCYTES (AUTO) 2.6 10^3/uL (0.5-4.7); ABSOLUTE MONOCYTES (AUTO) 1.1 10^3/uL (0.1-1.4); ABSOLUTE NEUT (AUTO) 4.5 10^3/uL (1.7-8.2); BASOPHILS % (AUTO) 0.5 % (0-2); EOSINOPHILS % (AUTO) 4.4 % (0-6); HEMATOCRIT 37.9 % (37.9-51.0); HEMOGLOBIN 12.5 g/dL (13.5-17.0); LYMPHOCYTES % (AUTO) 30.1 % (13-45); MEAN CORPUSCULAR HEMOGLOBIN 28.5 pg (27.0-33.4); MEAN CORPUSCULAR HGB CONC 32.8 g/dL (32.0-36.0); MEAN CORPUSCULAR VOLUME 87 fl (80-97); MONOCYTES % (AUTO) 12.8 % (3-13); PLATELET COUNT 258 10^3/uL (150-450); RED BLOOD COUNT 4.38 10^6/uL (4.35-5.55); RED CELL DISTRIBUTION WIDTH 16.5 % (11.5-14.0); SEGMENTED NEUTROPHILS % (AUTO) 52.2 % (42-78); TOTAL CELLS COUNTED % (AUTO) 100 %; WHITE BLOOD COUNT 8.7 10^3/uL (4.0-10.5)
[2018-04-16 18:37] LABS: ALANINE AMINOTRANSFERASE 20 U/L (21-72); ALKALINE PHOSPHATASE 89 U/L (38-126); ANION GAP 13 (5-19); ASPARTATE AMINO TRANSFERASE 11 U/L (17-59); BILIRUBIN,DIRECT 0.4 mg/dL (0.0-0.4); BILIRUBIN,TOTAL 0.9 mg/dL (0.2-1.3); BLOOD UREA NITROGEN 17 mg/dL (7-20); CALCIUM 9.6 mg/dL (8.4-10.2); CARBON DIOXIDE 26 mmol/L (22-30); CHLORIDE 104 mmol/L (98-107); CREATINE KINASE 55 U/L (55-170); GLUCOSE 83 mg/dL (75-110); POTASSIUM 4.8 mmol/L (3.6-5.0); SODIUM 142.7 mmol/L (137-145); TOTAL PROTEIN 6.7 g/dL (6.3-8.2)
[2018-04-16 18:47] LABS: CREATINE KINASE MB 3.55 ng/mL (<4.55); TROPONIN I 0.028 ng/mL
== END 2018-04-16 20:12 | disposition home or self-care (01) ==
LOC: ER 16:07
DX: R20.2 Paresthesia of skin (principal); F17.210 Nicotine dependence, cigarettes, uncomplicated; I50.9 Heart failure, unspecified; I11.0 Hypertensive heart disease with heart failure; I25.10 Atherosclerotic heart disease of native coronary artery without angina pectoris; E11.9 Type 2 diabetes mellitus without complications; Z95.1 Presence of aortocoronary bypass graft; I25.2 Old myocardial infarction
CPT/HCPCS: 36415; 70450; 80053; 82550; 82553; 84484; 85025; 93005; 93010; 99284

== ENCOUNTER → 2018-11-08 | Outpatient (CLI) | payer MEDICARE, OTHER ==
--- NOTE | 2018-11-08 11:33 | RADIOLOGY REPORT (SQ) ---
EXAM DESCRIPTION: CT HEAD WITHOUT COMPLETED DATE/TIME: 11/08/2018 10:59 am REASON FOR STUDY: (I63.9)CEREBRAL INFARCTION, UNSPECIFIED I63.9 CEREBRAL INFARCTION, UNSPECIFIED COMPARISON: None. TECHNIQUE: Axial images acquired through the brain without intravenous contrast. Images reviewed wi th bone, brain and subdural windows. Additional sagittal and coronal reconstructions were generated. Images stored on PACS. All CT scanners at this facility use dose modulation, iterative reconstruction, and/or weight based d osing when appropriate to reduce radiation dose to as low as reasonably achievable (ALARA). [facility]: Dose Right [facility]: CareDose [facility]: Dose Right [facility]: Teradose 4D [facility]: [employer] RADIATION DOSE: CT Rad equipment meets quality standard of care and radiation dose reduction techniq ues were employed. CTDIvol: 48.7 mGy. DLP: 979 mGy-cm.mGy. LIMITATIONS: None. FINDINGS: VENTRICLES: Prominent. CEREBRUM: No masses. No hemorrhage. No midline shift. Old right occipital infarct. Areas of low d ensity in the white matter most likely due to chronic micro-vascular ischemic change. No evidence fo r acute infarction. CEREBELLUM: No masses. No hemorrhage. No alteration of density. No evidence for acute infarction. EXTRAAXIAL SPACES: Age-related involutional change. No fluid collections. No masses. ORBITS AND GLOBE: No intra- or extraconal masses. Normal contour of globe without masses. CALVARIUM: No fracture. PARANASAL SINUSES: No fluid or mucosal thickening. SOFT TISSUES: No mass or hematoma. OTHER: No other significant finding. IMPRESSION: CHRONIC CHANGES OF ATROPHY AND MICROVASCULAR ISCHEMIA. NO ACUTE PROCESS. EVIDENCE OF ACUTE STROKE: NO. TECHNICAL DOCUMENTATION: JOB ID: [id number] Quality ID # [id number]: Final reports with documentation of one or more dose reduction techniques (e.g., Au tomated exposure control, adjustment of the mA and/or kV according to patient size, use of iterative reconstruction technique) 2010 [employer]- All Rights Reserved Reading location - IP/workstation name: [email or web address]
== END ==
LOC: RAD 10:43
PROVIDERS: ATTEND Internal Medicine
DX: I63.9 Cerebral infarction, unspecified (principal)
CPT/HCPCS: 70450

== ENCOUNTER 2019-09-30 19:30 | Emergency (ER) | payer OTHER ==
--- NOTE | 2019-09-30 19:51 | ER Document Report ---
ED Medical Screen (RME) - General Chief Complaint: Vomiting Stated Complaint: VOMITING Time Seen by Provider: 09/30/19 19:45 Primary Care Provider: MAGGIE MARKHAM MD [Primary Care Provider] - Follow up as needed Mode of Arrival: Medic Information source: Patient Notes: This 69-year-old male with history of high blood pressure and cardiac disease with history of bypass presents to the emergency department with complaints of vomiting at least 12 times today and dizziness when he stands up. He denies abdominal pain. Reports he feels warm but unknown fever. Reports he lives with his children and nobody is sick at home. Patient was brought in by EMS. EMS provided him with Zofran. I have greeted and performed a rapid initial assessment of this patient. A comprehensive ED assessment and evaluation of the patient, analysis of test results and completion of the medical decision making process will be conducted by additional ED providers. TRAVEL OUTSIDE OF THE [place] IN LAST 30 DAYS: No - Related Data Allergies/Adverse Reactions: ragweed Allergy (Intermediate, Uncoded 04/16/18 16:13) Stuffy Nose Past Medical History - Past Medical History Cardiac Medical History: Reports: Hx Congestive Heart Failure, Hx Coronary Artery Disease, Hx Heart Attack, Hx Hypercholesterolemia, Hx Hypertension Pulmonary Medical History: Reports: Hx COPD Endocrine Medical History: Reports: Hx Diabetes Mellitus Type 2 Renal/ Medical History: Denies: Hx Peritoneal Dialysis GI Medical History: Reports: Hx Gastroesophageal Reflux Disease Psychiatric Medical History: Denies: Hx Depression Past Surgical History: Reports: Hx Appendectomy, Hx Cardiac Catheterization - PTCA, Hx Cardiac Surgery, Hx Cholecystectomy, Hx Coronary Stent - AAA and iliac repair, Hx Orthopedic Surgery - spinal surgery to remove bone spurs, Hx Tonsillectomy Physical Exam - Vital signs Vitals: Temp Pulse Resp BP Pulse Ox 97.6 F 64 18 168/105 H 97 09/30/19 19:35 09/30/19 19:35 09/30/19 19:35 09/30/19 19:35 09/30/19 19:35 Course - Vital Signs Vital signs: Temp Pulse Resp BP Pulse Ox 97.6 F 64 18 168/105 H 97 09/30/19 19:35 09/30/19 19:35 09/30/19 19:35 09/30/19 19:35 09/30/19 19:35 Doctor's Discharge - Discharge Referrals: MAGGIE MARKHAM MD [Primary Care Provider] - Follow up as needed
--- NOTE | 2019-09-30 20:49 | RADIOLOGY REPORT (SQ) ---
EXAM DESCRIPTION: Single PA view of the chest CLINICAL HISTORY: 69 years Male, dizzy COMPARISON: Portable view of the chest 01/15/2018 FINDINGS: Lungs: Lungs are clear. No pneumothorax. No pleural effusion. Mediastinum: Heart size is within normal limits. There is mild tortuosity of the thoracic aorta. Sternal wires are seen. Bones: Osseous structures are normal. Clips are present in the right upper quadrant of the abdomen. IMPRESSION: No acute process. No pneumonia or edema.
[2019-09-30 21:10] LABS: ABSOLUTE BASOPHILS # (AUTO) 0.1 10^3/uL (0.0-0.2); ABSOLUTE EOSINOPHILS # (AUTO) 0.1 10^3/uL (0.0-0.6); ABSOLUTE LYMPHOCYTES (AUTO) 0.8 10^3/uL (0.5-4.7); ABSOLUTE MONOCYTES (AUTO) 0.6 10^3/uL (0.1-1.4); ABSOLUTE NEUT (AUTO) 8.8 10^3/uL (1.7-8.2); BASOPHILS % (AUTO) 0.5 % (0-2); EOSINOPHILS % (AUTO) 0.5 % (0-6); HEMATOCRIT 33.3 % (37.9-51.0); HEMOGLOBIN 10.9 g/dL (13.5-17.0); LYMPHOCYTES % (AUTO) 7.4 % (13-45); MEAN CORPUSCULAR HEMOGLOBIN 24.3 pg (27.0-33.4); MEAN CORPUSCULAR HGB CONC 32.6 g/dL (32.0-36.0); MEAN CORPUSCULAR VOLUME 75 fl (80-97); MONOCYTES % (AUTO) 6.2 % (3-13); PLATELET COUNT 227 10^3/uL (150-450); RED BLOOD COUNT 4.47 10^6/uL (4.35-5.55); RED CELL DISTRIBUTION WIDTH 17.8 % (11.5-14.0); SEGMENTED NEUTROPHILS % (AUTO) 85.4 % (42-78); TOTAL CELLS COUNTED % (AUTO) 100 %; WHITE BLOOD COUNT 10.3 10^3/uL (4.0-10.5)
[2019-09-30] MEDS ORDERED: NORMAL SALINE 1000 ML 1,000 ML IV ONE (21:18)
[2019-09-30] MEDS ORDERED: ONDANSETRON HCL INJ/PF 4 MG/2 ML SDV IV ONE (21:19)
--- NOTE | 2019-09-30 21:20 | ER Document Report ---
Entered by TOMMIE DE LA CRUZ SCRIBE 09/30/19 3059 Acting as scribe for:QUETA JOHNSON IV, MD ED General - General Chief Complaint: Dizziness Stated Complaint: VOMITING Time Seen by Provider: 09/30/19 19:45 Primary Care Provider: MAGGIE MARKHAM MD [Primary Care Provider] - Follow up as needed Mode of Arrival: Medic Information source: Patient Notes: This 69 year old male patient with a history of HTN and CAD brought in by EMS presents to the ED today with complaints of lightheadedness, dizziness, and nausea/vomiting that started prior to arrival. Patient states that he had x12 episodes of emesis and dizziness when he stands up. He reports that he lives with family and that they don't have any symptoms. He notes that EMS administ lisa Rodriguez for his nausea en route. Patient admits that he has not been taking his Metoprolol for x1 month. Denies abdominal pain or fever. TRAVEL OUTSIDE OF THE [place] IN LAST 30 DAYS: No - Related Data Allergies/Adverse Reactions: ragweed Allergy (Intermediate, Uncoded 04/16/18 16:13) Stuffy Nose Home Medications: metoprolol-not taking x1 mnth. asa 325 mg, MVI Past Medical History - General Information source: Patient - Social History Smoking Status: Current Every Day Smoker Cigarette use (# per day): Yes Chew tobacco use (# tins/day): No Smoking Education Provided: No Lives with: Family Family History: Reviewed & Not Pertinent Patient has suicidal ideation: No Patient has homicidal ideation: No - Past Medical History Cardiac Medical History: Reports: Hx Congestive Heart Failure, Hx Coronary Artery Disease, Hx Heart Attack, Hx Hypercholesterolemia, Hx Hypertension Pulmonary Medical History: Reports: Hx COPD Endocrine Medical History: Reports: Hx Diabetes Mellitus Type 2 GI Medical History: Reports: Hx Gastroesophageal Reflux Disease Past Surgical History: Reports: Hx Appendectomy, Hx Cardiac Catheterization - PTCA, Hx Cardiac Surgery, Hx Cholecystectomy, Hx Coronary Stent - AAA and iliac repair, Hx Orthopedic Surgery - spinal surgery to remove bone spurs, Hx Tons illectomy Review of Systems - Review of Systems Constitutional: See HPI. denies: Fever EENT: No symptoms reported Cardiovascular: See HPI, Dizziness, Lightheaded Respiratory: No symptoms reported Gastrointestinal: See HPI, Nausea, Vomiting. denies: Abdominal pain Genitourinary: No symptoms reported Male Genitourinary: No symptoms reported Musculoskeletal: No symptoms reported Skin: No symptoms reported Hematologic/Lymphatic: No symptoms reported Neurological/Psychological: No symptoms reported -: Yes All other systems reviewed and negative Physical Exam - Vital signs Vitals: Temp Pulse Resp BP Pulse Ox 97.6 F 64 18 168/105 H 97 09/30/19 19:35 09/30/19 19:35 09/30/19 19:35 09/30/19 19:35 09/30/19 19:35 Interpretation: Hypertensive - General General appearance: Alert In distress: None - HEENT Head: Normocephalic, Atraumatic Eyes: Other - Horizontal fatiguing nystagmus Pupils: PERRL - Respiratory Respiratory status: No respiratory distress Chest status: Nontender Breath sounds: Normal Chest palpation: Normal - Cardiovascular Rhythm: Regular Heart sounds: Normal auscultation Murmur: No Friction rub: No Gallop: None auscultated - Abdominal Inspection: Normal Distension: No distension Bowel sounds: Normal Tenderness: Nontender - Abdomen soft Organomegaly: No organomegaly - Back Back: Normal, Nontender - Extremities General upper extremity: Normal inspection General lower extremity: Normal inspection - Neurological Neuro grossly intact: Yes - Psychological Associated symptoms: Normal affect, Normal mood - Skin Skin Temperature: Warm Skin Moisture: Dry Skin Color: Normal Course - Re-evaluation Re-evalutation: 09/30/19 23:54 Results of ED MSE discussed with patient. Patient states he is feeling better and is no longer nauseated. Patient does not want a prescription for Zofran. Patient is requesting a prescription for his metoprolol XL 100 mg p.o. daily that he has been out of for a month. All questions were answered prior to jocelyn mariscal, emergency signs and symptoms, reasons to return to the emergency department discussed with patient. - Vital Signs Vital signs: Temp Pulse Resp BP Pulse Ox 97.6 F 74 15 150/99 H 97 09/30/19 19:45 09/30/19 21:24 09/30/19 23:47 09/30/19 23:47 09/30/19 23:00 - Laboratory Result Diagrams: 09/30/19 20:58 09/30/19 20:58 Laboratory results interpreted by me: 09/30/19 09/30/19 20:58 20:58 Hgb 10.9 L Hct 33.3 L MCV 75 L MCH 24.3 L RDW 17.8 H Lymph % (Auto) 7.4 L Absolute Neuts (auto) 8.8 H Seg Neutrophils % 85.4 H Sodium 135.3 L Glucose 117 H AST 16 L - Diagnostic Test Radiology reviewed: Reports reviewed - EKG Interpretation by Me Additional EKG results interpreted by me: 09/30/19 23:54 EKG obtained on 09/30/2019 at 2039 hrs. was interpreted by this MD. Findings: Normal sinus rhythm, rate 67, normal axis, P waves proceed QRS complexes, QRS complexes are narrow, there are no obvious patterns of ST segment elevation or depression present to suggest acute myocardial ischemia or infarction. Impression: Normal sinus rhythm with nonspecific ST segments. Discharge - Discharge Clinical Impression: Elevated blood pressure reading, Noncompliance with medication regimen Nausea and vomiting Qualifiers: Vomiting type: unspecified Vomiting Intractability: non-intractable Qualified Code(s): R11.2 - Nausea with vomiting, unspecified Condition: Good Disposition: HOME, SELF-CARE Instructions: Vomiting ([facility]) Additional Instructions: Return to the Emergency Department without delay if any worse. HOME CARE INSTRUCTIONS & INFORMATION: Thank you for choosing us for your medical needs. We hope you're satisfied with the care you received. After you leave, you must properly care for your problem and, at the same time, observe its progress. Any condition can change. Some illnesses can change rapidly over hours or days. If your condition worsens, return to the Emergency Department or see your physician promptly. ABOUT YOUR X-RAYS AND EKG'S: If you had an EKG or X-rays taken, they have been read by the Emergency Physician. The X-rays and EKG's will also be read by a Radiologist or Automobile Service Writer within 24 hours. If discrepancies are noted, you will be notified by telephone. Please be certain the ED has a correct telephone number & address where you can be reached. Also, realize that some fractures or abnormalities do not show up on initial X-rays. If your symptoms continue, see your physician. ABOUT YOUR LABORATORY TEST: If you had laboratory tests, the results have been reviewed by the Emergency Physician. Some test results (for example cultures) may not be available for several days. You will be contacted if any test result shows you need additional treatment. Please be certain the ED has a correct telephone number and address where you can be reached. ABOUT YOUR MEDICATIONS: You will receive instructions on how to take your medicine on the prescription label you receive. Additional information may be provided by the Pharmacy. If you have questions afterwards, call the ED for clarification or further instructions. Some prescribed medications may cause drowsiness. Do not perform tasks such as driving a car or operating machinery without consulting your Pharmacist. If you feel you need a refill of pain medication, your condition will need re-evaluation. Please do not call for a refill of any medication. ABOUT YOUR SIGNATURE: Signature of this document acknowledges to followin. Understanding that you received emergency treatment and that you may be released before al medical problems are known or treated. Please be certain the ED has a correct phone number & address where you can be reached. 2. Acknowledgement that you will arrange for follow-up care as recommended. 3. Authorization for the Emergency Physician to provide information to your follow-up Physician in order to maximize your care. AT ANY TIME, IF YOUR SYMPTOMS CHANGE SIGNIFICANTLY OR WORSEN OR YOU DEVELOP NEW SYMPTOMS, RETURN TO THE EMERGENCY DEPARTMENT IMMEDIATELY FOR RE-EVALUATION. OUR GOAL IS TO PROVIDE EXCELLENT MEDICAL CARE! WE HOPE THAT WE HAVE MET YOUR EXPECTATIONS DURING YOUR EMERGENCY DEPARTMENT VISIT AND THAT YOU FEEL YOU HAVE RECEIVED EXCELLENT CARE! Prescriptions: Metoprolol Succinate 100 mg PO DAILY 30 Days #30 tab.er.24h Referrals: MAGGIE MARKHAM MD [Primary Care Provider] - Follow up as needed I personally performed the services described in the documentation, reviewed and edited the documentation which was dictated to the scribe in my presence, and it accurately records my words and actions.
[2019-09-30 21:30] LABS: ALBUMIN 4.1 g/dL (3.5-5.0); ALKALINE PHOSPHATASE 73 U/L (38-126); ANION GAP 6 (5-19); ASPARTATE AMINO TRANSFERASE 16 U/L (17-59); BILIRUBIN,TOTAL 0.6 mg/dL (0.2-1.3); BLOOD UREA NITROGEN 20 mg/dL (7-20); CARBON DIOXIDE 27 mmol/L (22-30); CHLORIDE 102 mmol/L (98-107); GLUCOSE 117 mg/dL (75-110); POTASSIUM 4.4 mmol/L (3.6-5.0); TOTAL PROTEIN 6.8 g/dL (6.3-8.2)
[2019-09-30 21:56] LABS: APPEARANCE,URINE CLEAR; BILIRUBIN,URINE NEGATIVE (NEGATIVE); COLOR,URINE YELLOW; GLUCOSE, URINE NEGATIVE (NEGATIVE); KETONES,URINE NEGATIVE (NEGATIVE); PROTEIN,URINE NEGATIVE (NEGATIVE); URINE SPECIFIC GRAVITY 1.013; UROBILINOGEN,URINE NEGATIVE mg/dL (<2.0)
[2019-09-30] MEDS ORDERED: HYDROCODONE/ACETAMINOPHEN 5-325 MG (6 TAB/ER DISP) PO PRN (22:27)
[2019-09-30] MEDS ORDERED: HYDROCODONE/ACETAMINOPHEN 5-325 MG TABLET PO ONE (22:27)
--- NOTE | 2019-09-30 23:01 | RADIOLOGY REPORT (SQ) ---
EXAM DESCRIPTION: CT HEAD WITHOUT IV CONTRAST COMPLETED DATE/TME: 09/30/2019 21:22 CLINICAL INDICATION: 69-year-old male with vomiting, weakness and altered mental status. COMPARISON: 11/08/2018. TECHNIQUE: CT brain without contrast. This exam was performed according to our departmental dose optimization program which includes use of automated exposure control, adjustment of the mA and/or kV according to patient size and/or use of iterative reconstruction technique. FINDINGS: Multifocal regions of patchy hypoattenuation are present in a subcortical and periventricular deep white matter distribution, nonspecific; however, most likely represent small vessel ischemic disease, age indeterminate. Gliosis and encephalomalacia of the RIGHT occipital parietal lobe stable in comparison to the previous examination compatible with sequela of prior infarction. The ventricles, and sulci are prominent compatible with underlying volume loss. The ward-white matter differentiation is preserved. There is no mass effect, midline shift, intra- or extra-axial fluid collection/acute hemorrhage. The osseous structures are unremarkable. The paranasal sinuses and mastoid air cells are clear. IMPRESSION: 1. No acute intracranial abnormalities. Nonspecific white matter change most likely small vessel ischemic disease, age indeterminate. 2. CT is insensitive for early evaluation of acute stroke. If there is clinical concern for acute ischemia, an MRI may be considered.
[2019-09-30] MEDS: CLINDAMYCIN HCL 150 MG CAPSULE PO ONE ×2 (23:26→23:45)
[2019-10-01 00:21] VITALS: BP 158/90
--- NOTE | 2019-10-01 10:31 | EKG REPORT ---
SEVERITY:- ABNORMAL ECG - SINUS RHYTHM ATRIAL PREMATURE COMPLEX PROBABLE LEFT ATRIAL ABNORMALITY LEFT VENTRICULAR HYPERTROPHY INFERIOR INFARCT, AGE INDETERMINATE ANTEROLATERAL Q WAVES, PROBABLY DUE TO LVH BORDERLINE PROLONGED QT INTERVAL : Confirmed by: Jose Mayer 01-Oct-2019 10:31:30
== END 2019-10-01 00:21 | disposition home or self-care (01) ==
LOC: ER 19:30
DX: R11.2 Nausea with vomiting, unspecified (principal); T44.7X6A Underdosing of beta-adrenoreceptor antagonists, initial encounter; Z91.128 Patient's intentional underdosing of medication regimen for other reason; Z91.14 Patient's other noncompliance with medication regimen; R42 Dizziness and giddiness; I11.0 Hypertensive heart disease with heart failure; I50.9 Heart failure, unspecified; I25.10 Atherosclerotic heart disease of native coronary artery without angina pectoris; I25.2 Old myocardial infarction; J44.9 Chronic obstructive pulmonary disease, unspecified; E11.9 Type 2 diabetes mellitus without complications; Z79.82 Long term (current) use of aspirin; Z79.899 Other long term (current) drug therapy; Z95.5 Presence of coronary angioplasty implant and graft
CPT/HCPCS: 93005; 99285; 96361; 96374; 36415; 83690; 85025; 80053; 81001; 84484; 71045; 70450; 93010; J2405; J7030

== ENCOUNTER 2020-02-03 17:23 | Emergency (ER) | payer OTHER ==
[2020-02-03 17:41] VITALS: BP 148/98
[2020-02-03] MEDS ORDERED: HYDROCODONE/ACETAMINOPHEN 5-325 MG TABLET PO ONE (18:39)
[2020-02-03] MEDS ORDERED: CEPHALEXIN 500 MG CAPSULE PO ONE (18:39)
[2020-02-03] MEDS ORDERED: SULFAMETHOXAZOLE/TRIMETHOPRIM 800-160 MG TABLET PO ONE (18:39)
--- NOTE | 2020-02-03 18:41 | ER Document Report ---
ED Skin Rash/Insect Bite/Abscs - General Chief Complaint: Hand Pain Stated Complaint: POSSIBLE FINGER INFECTION Time Seen by Provider: 02/03/20 18:27 Primary Care Provider: MAGGIE MARKHAM MD [Primary Care Provider] - 02/06/20 Mode of Arrival: Ambulatory Information source: Patient Notes: 69-year-old male presented to ED for complaint of pain and swelling to his left index finger. He states he has an infection and he does not know why. He states he might of gotten some in his hand. He is alert oriented respirations regular nonlabored speaking in full sentences. REVIEW OF SYSTEMS: CONSTITUTIONAL : Denies fever, chills, or sweats. Denies recent illness. MUSCULOSKELETAL: Swelling pain to the left index finger SKIN: Paronychia with a splinter to the left index finger HEMATOLOGIC : Denies easy bruising or bleeding. LYMPHATIC: Denies swollen, enlarged glands. NEUROLOGICAL: Denies altered mental status or loss of consciousness. Denies headache. Denies weakness or paralysis or loss of use of either side. Denies problems with gait or speech. Denies sensory or motor loss. PSYCHIATRIC: Denies anxiety or stress or depression. ALL OTHER SYSTEMS REVIEWED AND NEGATIVE. VITAL SIGNS: Within normal limits. GENERAL: No acute distress, non-toxic appearance. CHEST: Clear breath sounds bilaterally. No wheezes, rales, or rhonchi. CARDIAC: Regular rate and rhythm. SKIN: Paronychia with a very small splinter to the end of the left index finger. TRAVEL OUTSIDE OF THE [place] IN LAST 30 DAYS: No - HPI Patient complains to provider of: Tender/swollen area Onset: Other - Several days Onset/Duration: Gradual Quality of pain: Achy, Pressure, Sharp Severity: Mild Pain Level: 1 Skin Character: Other - Splinter under the skin and a paronychia to the left index finger Quality of rash: Painful Identify cause: No Exacerbated by: Movement Relieved by: Denies Similar symptoms previously: No Recently seen / treated by doctor: No - Related Data Allergies/Adverse Reactions: ragweed Allergy (Intermediate, Uncoded 04/16/18 16:13) Stuffy Nose Home Medications: Aspirin, Multivitamin Past Medical History - General Information source: Patient - Social History Smoking Status: Current Every Day Smoker Cigarette use (# per day): Yes - Third a pack a day Chew tobacco use (# tins/day): No Smoking Education Provided: Yes Frequency of alcohol use: None Drug Abuse: None Family History: Reviewed & Not Pertinent - Past Medical History Cardiac Medical History: Reports: Hx Congestive Heart Failure, Hx Coronary Artery Disease, Hx Heart Attack, Hx Hypercholesterolemia, Hx Hypertension Pulmonary Medical History: Reports: Hx COPD Endocrine Medical History: Reports: Hx Diabetes Mellitus Type 2 Renal/ Medical History: Denies: Hx Peritoneal Dialysis GI Medical History: Reports: Hx Gastroesophageal Reflux Disease Psychiatric Medical History: Denies: Hx Depression Past Surgical History: Reports: Hx Appendectomy, Hx Cardiac Catheterization - PTCA, Hx Cardiac Surgery, Hx Cholecystectomy, Hx Coronary Stent - AAA and iliac repair, Hx Orthopedic Surgery - spinal surgery to remove bone spurs, Hx Tonsillectomy Physical Exam - Vital signs Vitals: Temp Pulse Resp BP Pulse Ox 98.1 F 78 18 148/98 H 98 02/03/20 17:36 02/03/20 17:36 02/03/20 17:36 02/03/20 17:36 02/03/20 17:36 Course - Re-evaluation Re-evalutation: 02/03/20 18:47 Finger was cleaned well with ChloraPrep. The splint was removed from the distal posterior index finger on the left hand. The paronychia was then opened and drained with large amount of purulent drainage. Patient was giving Keflex and Bactrim as well as 1 Winsted due to the pain and discharged home with prescriptions for Bactrim and Keflex. He was also instructed to follow-up with his eye care doctor he states he has an appointment on Wednesday. He was also given instructions on use of Epson salts soaks and bacitracin. Please follow-up with the primary care doctor as instructed. - Vital Signs Vital signs: Temp Pulse Resp BP Pulse Ox 98.1 F 78 18 148/98 H 98 02/03/20 17:36 02/03/20 17:36 02/03/20 17:36 02/03/20 17:36 02/03/20 17:36 Procedures - Incision and Drainage Left Finger 2nd digit Time completed: 18:49 Type: Simple - Paronychia and splinter removal Anesthetic type: Other - 0 mL's of anesthetic: 0 Blade size: Other - 18-gauge I&D procedure: Chlorprep applied, Sterile dressing applied Incision Method: Incision made with needle Amount/type of drainage: Splinter removed and then paronychia I&D large amount of purulent drainage Discharge - Discharge Clinical Impression: Paronychia of left index finger, Splinter left index finger Condition: Stable Disposition: HOME, SELF-CARE Additional Instructions: Paronychia You have an infection between the nail and the surrounding skin, called a paronychia. The germs infect the area after a minor skin injury, such as a hangnail. This infection is treated by releasing the pus. This is usually done by the skin from the nail. If the infection has spread underneath the nail, partial removal of the nail may be necessary. Hot-soak the area three or four times daily. Antibiotics are often given, but are not always necessary. Healing takes about a week. If pain or swelling becomes severe or if you develop fever or chills, call the doctor or return for re-examination. Also had a small splinter in the individual finger. Both of these were causing the pain and swelling. Epsom Salt Soaks Soak the wound area in a container of warm epsom salt water. If you can't get the wound area into a bucket or calderon, use a folded towel soaked in the epsom salt solution and apply to the area. Use clean hot tap water (about the temperature of a very warm bath), mixing in about one (1) teaspoon for every pint of water. Two gallon --> 16 teaspoons Epsom Salts One gallon --> 8 teaspoons Epsom Salts Two quarts --> 4 teaspoons Epsom Salts One quart --> 2 teaspoons Epsom Salts Soak the wound for about 20 minutes while gently moving it around in the water. Repeat this four (4) times a day. ORAL NARCOTIC MEDICATION: You have been given a Winsted for pain control. This medication is a narcotic. It's best taken with food, as nausea can result if taken on an empty stomach. Don't operate machinery or drive within six hours of taking this medication. Do not combine this medicine with alcohol, or with any medication which can cause sedation (such as cold tablets or sleeping pills) unless you get permission from the physician. Narcotics tend to cause constipation. If possible, drink plenty of fluids and eat a diet high in fiber and fruits. CEPHALEXIN: The antibiotic you've been prescribed is a member of the cephalosporin class. This type of antibiotic covers a wide variety of infections, including those of the skin, lungs, and urinary tract. It's useful for staph infections. This antibiotic is slightly similar to the penicillin family. In rare cases, a person who is allergic to penicillin will also be allergic to this medication. If you have had a severe allergic reaction to penicillin, and have not taken this antibiotic since that time, notify your doctor. Antibiotics which cover many germs ("broad spectrum" antibiotics) are more likely to cause diarrhea or "yeast" infections. Women prone to vaginal yeast problems may suffer an attack after taking this antibiotic. In infants, oral thrush (white spots "stuck" on the cheek) or yeast diaper rash may result. See your doctor if these problems occur. Call at once if you develop itching, hives, shortness of breath, or lightheadedness. TRIMETHOPRIM-SULFA: You have been given a prescription for trimethoprim-sulfa (TMS, Septra, Bactrim). This is a combination antibiotic of the sulfa class, often used for urinary tract infections, middle ear infections, bronchitis, shigella intestinal infection, and Pneumocystis pneumonia. TMS is usually well-tolerated. Occasional side effects include nausea and decreased appetite. Septra is not recommended for infants less than two months of age. Do not take this medication if you have experienced severe side effects or allergy to sulfa medicine. You should stop this medicine at once and contact your physician if you develop any rash, joint pain, shortness of breath, bruising, or jaundice (yellow color in the skin), or if you develop any other new or unusual symptoms. FOLLOW-UP CARE: Most simple abscesses will not require a follow up visit. If you had packing placed in the abscess, remove it as instructed by the physician. If you have been referred to a physician for follow-up care, call the physicians office for an appointment as you were instructed or within the next two days. If you experience worsening or a significant change in your symptoms, return to the Emergency Department at any time for re-evaluation. Prescriptions: Sulfamethoxazole/Trimethoprim [Bactrim Ds Tablet] 1 each PO BID #20 tablet Cephalexin Monohydrate [Keflex 500 mg Capsule] 500 mg PO Q6H 5 Days capsule Forms: Elevated Blood Pressure, Smoking Cessation Education Referrals: MAGGIE MARKHAM MD [Primary Care Provider] - 02/06/20
== END 2020-02-03 18:47 | disposition home or self-care (01) ==
LOC: ER 17:23
DX: L03.012 Cellulitis of left finger (principal); S60.451A Superficial foreign body of left index finger, initial encounter; W45.8XXA Other foreign body or object entering through skin, initial encounter; F17.210 Nicotine dependence, cigarettes, uncomplicated; I25.10 Atherosclerotic heart disease of native coronary artery without angina pectoris; I10 Essential (primary) hypertension; E11.9 Type 2 diabetes mellitus without complications; J44.9 Chronic obstructive pulmonary disease, unspecified
CPT/HCPCS: 99283; 10060; A9270 ×3